=== PATIENT | male | born 1985 | race Two or more races ===

== ENCOUNTER 2024-02-07 14:58 | Emergency (ER) | payer OTHER ==
[~2024-02-07] VITALS: Ht 177.8 cm; Wt 95.3 kg
--- NOTE | 2024-02-07 15:31 | ED.PDOC ---
Musculoskeletal HPI Comments 38-year-old male patient presents to the emergency room for pain to the left hand. 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 Patient reports that the metal bars used to break up concrete. Patient reports that the injury occurred around 11:30 a.m.. Patient has a small puncture wound to the 4th digit left hand on both the dorsal and plantar portion of the hand. Patient has full range of motion to the 4th digit. Neurovascular intact. No active bleeding noted. Patient reports that pain is tolerable and does not currently want anything for pain. Patient reports that he received his last tetanus vaccine 1 year ago Time Seen by MD: 15:19 Reviewed Notes: Nurses Notes, Medications Allergies: Coded Allergies: NO KNOWN ALLERGIES (Unverified , 02/07/24) Information Source: Patient Mode of Arrival: Ambulatory Past Medical History PAST MEDICAL HISTORY: Denies Surgical History: Denies all surgeries Family History Family History: Reviewed,noncontributory to illness Constitutional: denies: chills, diaphoresis, fatigue, fever, malaise, sweats, weakness, others EENTM: denies: blurred vision, double vision, ear bleeding, ear discharge, ear drainage, ear pain, ear ringing, eye pain, eye redness, hearing loss, mouth pain, mouth swelling, nasal discharge, nose bleeding, nose congestion, nose pain, photophobia, tearing, throat pain, throat swelling, voice changes, others Respiratory: denies: cough, hemoptysis, orthopnea, SOB at rest, shortness of breath, SOB with excertion, stridor, wheezing, others Cardiovascular: denies: chest pain, dizzy spells, diaphoresis, Dyspnea on exertion, edema, irregular heart beat, left arm pain, lightheadedness, palpitations, PND, syncope, others Genitourinary: denies: burning, dysuria, flank pain, frequency, hematuria, incontinence, penile discharge, penile sore, pain, testicle pain, testicle swelling, urgency, others Neurological: denies: dizziness, fainting, headache, left sided numbness, left sided weakness, numbness, paresthesia, pre-existing deficit, right sided numbness, right sided weakness, seizure, speech problems, tingling, tremors, weakness, others Musculoskeletal: reports: others (Pain to the 4th digit of the left hand.) Integumetry: denies: bruises, change in color, change in hair/nails, dryness, laceration, lesions, lumps, rash, wounds, others Allergic/Immunocompromised: denies: Difficulty Healing, Frequent Infections, Hives, Itching, others Hematologic/Lymphatic: denies: anemia, blood clots, easy bleeding, easy brui sing, swollen glands, others Endocrine: denies: excessive hunger, excessive sweating, excessive thirst, ex cessive urination, flushing, intolerance to cold, intolerance to heat, unexplained weight gain, unexplained weight loss, others Psychiatric: denies: anxiety, bipolar disorder, depression, hopeless, panic disorder, schizophrenia, sleepless, suicidal, others All Other Systems: Reviewed and Negative Physical Exam General Appearance: No Apparent Distress, Normal HEENT: Normal ENT Inspection, Pharynx Normal, TMs Normal Neck: Full Range of Motion, Non-Tender, Normal, Normal Inspection Respiratory: Chest Non-Tender, Lungs Clear, No Accessory Muscle Use, No Respiratory Distress, Normal Breath Sounds Cardiovascular: No Edema, No JVD, No Murmur, No Gallop, Normal Peripheral Pulses, Regular Rate/Rhythm Breast Exam: Deferred Gastrointestinal: No Organomegaly, Non Tender, No Pulsatile Mass, Normal Bowel Sounds, Soft Genitalia: Deferred Pelvic: Deferred Rectal: Deferred Extremities: No calf tenderness, Normal capillary refill, Normal inspection, Normal range of motion, No pedal edema, Swelling (Fourth digit of left hand), Tender (4th digit of left hand), Other (Patient has a small puncture wound to the dorsal and plantar portion of the base of the 4th digit of the left hand. No active bleeding.) Musculoskeletal : Apperance: Normal Neurologic: Alert, reception interviewer II-XII nml as Tested, No Motor Deficits, Normal Affect, Normal Mood, No Sensory Deficits Cerebellar Function: Normal Reflexes: Normal Skin: Dry, Normal Color, Warm Lymphatic: No Adenopathy Was a procedure done? Was a procedure done?: No Sedation Sedation?: No Other Procedure Informed consent obtained: Yes Risks, benefits, and alternati: Yes Differential Diagnosis EXT Differential Diagnosis: Fracture, Laceration, Neurovascular injury X-Ray, Labs, Meds, VS Vital Signs Date Time Temp Pulse Resp B/P (MAP) Pulse Ox O2 Delivery O2 Flow Rate FiO2 02/07/24 15:33 98.0 95 16 138/100 (479) 62 Time of 1ST Reevaluation: 15:31 Reevaluation 1ST: Unchanged Patient Education/Counseling: Diagnosis, Treatment, Prognosis Family Education/Counseling: No Family Present Departure 1 Departure Time of Disposition: 16:40 Impression: Primary Impression: Avulsion fracture of distal phalanx of finger Qualified Codes: S62.639A - Displaced fracture of distal phalanx of uns pecified finger, initial encounter for closed fracture Disposition: 01 HOME / SELF CARE / HOMELESS Condition: Stable Discharged With: Self Critical Care Note Critical Care Time?: No Stability Stability form required: No Heart Score Heart Score: Heart Score Response (Comments) Value History N/A 0 EKG N/A 0 Age N/A 0 Risk Factors N/A 0 Troponin N/A 0 Total 0 SAGRARIO SIDDIQUIP Feb 07, 2024 15:31
--- NOTE | 2024-02-07 15:57 | DVH ---
EXAM: XY L HAND 3V XRAY CLINICAL HISTORY: trauma, pain, 4th digit left hand COMPARISON: None TECHNIQUE: XY L HAND 3V XRAY Findings/Impression: 3 views of the left hand. Possible tiny avulsion fracture of the proximal and palmar aspect of the 4th middle phalanx. Mild sof t tissue edema. There is no evidence of dislocation, blastic, or lytic lesions. No radiopaque foreign bodies.
[2024-02-07 17:51] VITALS: BP 145/97; PULSE 76; RESP 17; TEMP 98.3; O2SAT 95
== END 2024-02-07 17:53 | disposition home or self-care (01) ==
LOC: ER 14:58
DX: S62.635A Displaced fracture of distal phalanx of left ring finger, initial encounter for closed fracture (principal); W22.8XXA Striking against or struck by other objects, initial encounter; Y93.89 Activity, other specified; Y92.89 Other specified places as the place of occurrence of the external cause; Y99.0 Civilian activity done for income or pay
CPT/HCPCS: 29130; 73130